=== PATIENT | female | born 1990 ===

== ENCOUNTER 2016-11-30 13:10 | Emergency (ER) | payer BC, OTHER ==
[2016-11-30] MEDS ORDERED: Lidocaine 2% PF * 5 ML VIAL INJ ONE (14:32)
--- NOTE | 2016-11-30 14:41 | UC ---
Bite Injury/Animal HPI - HPI Summary HPI Summary: While taking a stick from her dog, she was bitten on the R 2nd finger. Pt is immunized for rabies, dog is UTD on rabies IZ. - History of Current Complaint Chief Complaint: UCBiteInjury Stated Complaint: DOG BITE Time Seen by Provider: 11/30/16 14:14 Hx Obtained From: Patient Hx Last Menstrual Period: 11/22/16 ?: No Severity Currently: Moderate Onset/Duration: Sudden Onset Type of Bite: Pet Has Animal Been Immunized?: Yes Character: Full-Thickness Aggravating Factor(s): Nothing Alleviating Factor(s): Rest Hx of Bite: Provoked by: - animal playing with another dog Animal Available for Observation: Yes Animal Control Notified: Yes - Allergies/Home Medications Allergies/Adverse Reactions: Allergies Allergy/AdvReac Type Severity Reaction Status Date / Time Cephalexin Allergy GI Upset Verified 06/30/15 12:30 PMH/Surg Hx/FS Hx/Imm Hx Previously Healthy: Yes - Surgical History Surgical History: None - Family History Known Family History: Positive: Other - positive family history of finger lacerations - Social History Occupation: Employed Full-time Alcohol Use: Occasionally Substance Use Type: None Smoking Status (MU): Never Smoked Tobacco Review of Systems Constitutional: Negative Skin: Other - R 2nd finger lac Eyes: Negative ENT: Negative Respiratory: Negative Cardiovascular: Negative Gastrointestinal: Negative Genitourinary: Negative Motor: Negative Neurovascular: Negative Musculoskeletal: Negative Neurological: Negative Psychological: Negative All Other Systems Reviewed And Are Negative: Yes Physical Exam Triage Information Reviewed: Yes Appearance: Well-Appearing, No Pain Distress, Well-Nourished Vital Signs: Initial Vital Signs Temp 97.5 F 11/30/16 13:11 Pulse 78 11/30/16 13:11 Resp 20 11/30/16 13:11 Pulse Ox 100 11/30/16 13:11 Vital Signs Reviewed: Yes Eye Exam: Normal Eyes: Positive: Conjunctiva Clear ENT Exam: Normal ENT: Positive: Normal ENT inspection, Hearing grossly normal, Pharynx normal, TMs normal Dental Exam: Normal Neck exam: Normal Neck: Positive: Supple, Nontender, No Lymphadenopathy Respiratory Exam: Normal Respiratory: Positive: Chest non-tender, Lungs clear, Normal breath sounds, No respiratory distress, No accessory muscle use Cardiovascular Exam: Normal Cardiovascular: Positive: RRR, No Murmur Musculoskeletal: Positive: Strength Intact, ROM Intact Neurological Exam: Normal Neurological: Positive: Alert Psychological Exam: Normal Skin Exam: Other - R index finger lac Bite Injury Course/Dx - Differential Dx/Diagnosis Provider Diagnoses: R index finger dog bite. R index finger laceration repair Discharge - Discharge Plan Condition: Stable Disposition: HOME Prescriptions: Amoxicillin/Clavulanate TAB* [Augmentin TAB 875*] 875 mg PO BID #10 tab Patient Education Materials: Animal Bite (ED) Referrals: Edwin Wiggins DO [Primary Care Provider] - Additional Instructions: Call or see your primary care provider if you have increasing redness, swelling , or a streak up the arm. Return here or go to a different urgent care for suture removal in 8-9 days.
== END 2016-11-30 15:15 | disposition home or self-care (01) ==
LOC: UCEAST 13:10
DX: S61.250A Open bite of right index finger without damage to nail, initial encounter (principal); W54.0XXA Bitten by dog, initial encounter; Y92.9 Unspecified place or not applicable
CPT/HCPCS: 12001; 99212; 99213; G0463